=== PATIENT | male | born 1970 | race Caucasian/White ===

== ENCOUNTER 2025-10-10 14:09 | Outpatient (CLI) | payer BC, SELFPAY | END 2025-10-10 14:10 | disposition home or self-care (01) | LOC: NFLDREF 10-15 04:39 | PROVIDERS: Visit Provider Family Medicine | DX: Z00.00 Encounter for general adult medical examination without abnormal findings (principal); Z12.5 Encounter for screening for malignant neoplasm of prostate; Z13.6 Encounter for screening for cardiovascular disorders | CPT/HCPCS: 80053; 80061; G0103 ==